=== PATIENT | male | born 1975 | race African-American/Black ===

== ENCOUNTER 2019-05-26 01:19 | Emergency (ER) | payer MEDICAID ==
[~2019-05-26] VITALS: Ht 180.3 cm; Wt 108.0 kg
[2019-05-26] MEDS ORDERED: HYDROCODONE/ACETAMINOPHEN 5/325MG TABLET PO ONE (04:15)
[2019-05-26 05:15] VITALS: BP 125/71
== END 2019-05-26 05:15 | disposition home or self-care (01) ==
LOC: ER 01:19
DX: S92.412A Displaced fracture of proximal phalanx of left great toe, initial encounter for closed fracture (principal); F17.210 Nicotine dependence, cigarettes, uncomplicated; W01.0XXA Fall on same level from slipping, tripping and stumbling without subsequent striking against object, initial encounter; Y93.89 Activity, other specified; Y92.9 Unspecified place or not applicable
CPT/HCPCS: 73630; 99283

== ENCOUNTER 2020-02-24 20:18 | Emergency (ER) | payer MEDICAID, OTHER ==
[~2020-02-24] VITALS: Ht 180.3 cm; Wt 86.0 kg
[2020-02-24] MEDS ORDERED: KETOROLAC 60MG/2ML VIAL IM ONE (22:00)
[2020-02-24] MEDS ORDERED: HYDROCODONE/ACETAMINOPHEN 5/325MG TABLET PO ONE ×2 (22:00)
[2020-02-25 01:02] VITALS: BP 110/71
== END 2020-02-25 01:03 | disposition home or self-care (01) ==
LOC: ER 20:18
DX: S80.01XA Contusion of right knee, initial encounter (principal); F12.10 Cannabis abuse, uncomplicated; Z98.890 Other specified postprocedural states; V43.52XA Car driver injured in collision with other type car in traffic accident, initial encounter; W22.11XA Striking against or struck by driver side automobile airbag, initial encounter; Y93.89 Activity, other specified; Y92.488 Other paved roadways as the place of occurrence of the external cause
CPT/HCPCS: 71045; 72070; 73562; 99284; L1830